=== PATIENT | male | born 1990 | race Caucasian/White ===

== ENCOUNTER 2018-04-12 08:09 | Emergency (ER) | payer OTHER, BC ==
[~2018-04-12] VITALS: Ht 177.8 cm; Wt 127.0 kg
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
[2018-04-12 08:41] VITALS: BP 133/84
== END 2018-04-12 08:42 | disposition home or self-care (01) ==
LOC: ER 08:09
DX: Z77.21 Contact with and (suspected) exposure to potentially hazardous body fluids (principal)
CPT/HCPCS: 99281